=== PATIENT | female | born 1955 | race Two or more races ===

== ENCOUNTER 2024-06-19 15:35 | Emergency (ER) | payer OTHER ==
[~2024-06-19] VITALS: Ht 167.6 cm; Wt 65.8 kg
[~2024-06-19 15:35] MED LIST: AMLODIPINE BES2.5 MG
[2024-06-19] MEDS ORDERED: SYNTHROID88 MCG (15:53)
[2024-06-19] MEDS ORDERED: ENALAPRIL MALEATE 5 MG TABLET PO STA (16:45)
[2024-06-19 17:14] LABS: HEMATOCRIT 39.9 % (36.0-45.00); HEMOGLOBIN 13.2 g/dL (12.0-15.00); MEAN CELL VOLUME 85.7 fL (80.00-100.00); MEAN CORPUSCULAR HEMOGLOBIN 28.4 pg (27.00-32.0); MEAN CORPUSCULAR HGB CONC 33.1 g/dl (32.0-36.0); PLATELET COUNT 255 K/uL (150-450); RED BLOOD COUNT 4.66 M/uL (4.00-6.00); RED CELL DISTRIBUTION WIDTH 13.4 % (11.5-14.5)
[2024-06-19 17:31] LABS: CALCIUM 9.5 mg/dL (8.5-10.1); CREATININE SERUM 0.78 mg/dL (0.55-1.02); GFR 73.44; POTASSIUM 4.24 mEq/L (3.5-5.1)
== END 2024-06-19 17:50 | disposition home or self-care (01) ==
LOC: ER 15:38
PROVIDERS: General Practice
DX: R42 Dizziness and giddiness (principal); Z88.0 Allergy status to penicillin